=== PATIENT | male | born 1985 | race Caucasian/White ===

== ENCOUNTER 2019-03-13 10:18 | Inpatient (IN) ==
[2019-03-13] MEDS ORDERED: SENOKOT PO PRN ×2 (12:00→20:49)
[2019-03-13] MEDS ORDERED: IMODIUM PO PRN ×2 (12:00→20:46)
[2019-03-13] MEDS ORDERED: ZOFRAN IV PRN ×2 (12:00→20:54)
[2019-03-13] MEDS ORDERED: TUBERSOL ID ONE (12:00)
[2019-03-13] MEDS ORDERED: D5W 1,000 ML IV PRN ×2 (12:00→20:34)
[2019-03-13] MEDS ORDERED: SEROQUEL PO PRN (12:00)
[2019-03-13] MEDS ORDERED: NICODERM PATCH TD PRN ×2 (12:00→20:47)
[2019-03-13] MEDS ORDERED: TYLENOL PO PRN ×2 (12:00→20:51)
[2019-03-13] MEDS ORDERED: ZOFRAN ODT PO PRN ×2 (12:00→20:54)
[2019-03-13] MEDS ORDERED: MAALOX PLUS LIQUID PO PRN ×2 (12:00→20:46)
[2019-03-13] MEDS ORDERED: PHENOBARBITAL IV PRN ×2 (12:00→20:48)
[2019-03-13] MEDS ORDERED: DULCOLAX PR PRN ×2 (12:00→20:44)
[2019-03-13] MEDS ORDERED: MOTRIN PO PRN (12:00)
[2019-03-13] MEDS ORDERED: DESYREL PO PRN (12:00)
[2019-03-13] MEDS ORDERED: NORCO-10 PO PRN (12:03)
[2019-03-13] MEDS ORDERED: ZOSYN 3.375 GM in NS 50 ML IV SCH (12:15)
[2019-03-13] MEDS ORDERED: VANCOMYCIN IV PER PHARMACY MISC SCH (12:15)
[2019-03-13] MEDS ORDERED: M.V.I.-12 10 ML, FOLIC ACID 1 MG, MAGNESIUM SULFATE 1 GM, THIAMINE 100 MG in NS 1,000 ML IV ONE (13:00)
[2019-03-13 14:07] LABS: URINE SOURCE VOIDED
[2019-03-13] MEDS ORDERED: FLU VACCINE IM ONE (14:09)
[2019-03-13 14:11] LABS: HEMATOCRIT 33.8 % (42.0-52.0); MCH 29.3 PG (27-31); MCHC 32.5 g/dL (33-37); MCV 89.9 FL (81-99); MPV 9.5 FL (7.4-10.4); RBC 3.76 XMIL (4.7-6.1); WBC 10.82 X1000 (4.8-10.8)
[2019-03-13 14:16] LABS: BILIRUBIN URINE NEGATIVE (NEGATIVE); BLOOD URINE NEGATIVE (NEGATIVE); CLARITY CLEAR (CLEAR); COLOR YELLOW; GLUCOSE URINE NEGATIVE (NEGATIVE); KETONE URINE 1+(Small) mg/dL (NEGATIVE); LEUKOCYTES URINE TRACE (NEGATIVE); NITRITE URINE NEGATIVE (NEGATIVE); PROTEIN URINE TRACE mg/dL (NEGATIVE); UROBILINOGEN URINE 4 mg/dL
[2019-03-13 14:19] LABS: URINE BACTERIA NEGATIVE /HFP; URINE CAST NONE SEEN /LPF; URINE CRYSTAL CA OXALATE PRESENT /HPF; URINE EPITHELIAL CELLS <10 /HPF (<10); URINE RBC <10 /HPF (<10); URINE YEAST NONE SEEN /HPF
[2019-03-13 14:23] LABS: INR 1.05; PROTIME 14.2 Seconds (11.0-16.0)
[2019-03-13 14:24] LABS: UR AMPHETAMINES QUAL PRESUMPTIVE POSITIVE (NONE DETECT); UR BARBITUATES QUAL NONE DETECTED (NONE DETECT); UR BENZODIAZEPIN QUAL NONE DETECTED (NONE DETECT); UR CANNABINOIDS QUAL NONE DETECTED (NONE DETECT); UR COCAINE QUAL NONE DETECTED (NONE DETECT); UR METHADONE QUAL NONE DETECTED (NONE DETECT); UR METHAMPHETAMINE QUAL PRESUMPTIVE POSITIVE (NONE DETECT); UR OPIATES QUAL PRESUMPTIVE POSITIVE (NONE DETECT); UR OXYCODONE QUAL NONE DETECTED (NONE DETECT); UR PCP QUAL NONE DETECTED (NONE DETECT); UR PROPOXYPHENE QUAL NONE DETECTED (NONE DETECT); UR TCA QUAL NONE DETECTED (NONE DETECT)
[2019-03-13 14:29] LABS: AMYLASE 30 U/L (20-200); LIPASE 29 U/L (13-60)
[2019-03-13 14:31] LABS: AGAP 10; ALBUMIN 3.3 g/dL (3.5-5.0); ALKALINE PHOSPHATASE 82 U/L (32-122); BUN 14 mg/dL (8-22); CHLORIDE 104 mmol/L (98-107); COSMO 270; CREATININE 0.6 mg/dL (0.7-1.2); ESTIMATED GFR > 60; GLUCOSE 121 mg/dL (70-104); GOT 13 U/L (10-34); GPT 9 U/L (10-44); SODIUM 134 mmol/L (136-145); TCO2 20 mmol/L (25-35); TOTAL PROTEIN 7.6 g/dL (6.3-8.3)
[2019-03-13] MEDS ORDERED: NS 250 ML ONE (15:12)
[2019-03-13] MEDS ORDERED: VANCOMYCIN 2,000 MG in NS 500 ML IV SCH (16:00)
[2019-03-13] MEDS ORDERED: DILAUDID IV PRN (18:00)
[2019-03-13] MEDS: SEROQUEL PO PRN (21:39)
[2019-03-13] MEDS: NORCO-10 PO PRN (21:40)
[2019-03-13] MEDS: ZOSYN 3.375 GM in NS 50 ML IV SCH (23:29)
[2019-03-14] MEDS: NORCO-10 PO PRN ×3 (01:01→23:29)
[2019-03-14] MEDS: DESYREL PO PRN (01:01)
[2019-03-14] MEDS: DILAUDID IV PRN ×6 (04:11→22:03)
[2019-03-14] MEDS: ZOSYN 3.375 GM in NS 50 ML IV SCH ×4 (06:34→22:03)
[2019-03-14] MEDS: VANCOMYCIN 2,000 MG in NS 500 ML IV SCH ×2 (06:34→17:18)
[2019-03-14] MEDS ORDERED: PROTONIX PO SCH (07:00)
[2019-03-14] MEDS: PROTONIX PO SCH (07:51)
[2019-03-14] MEDS ORDERED: FOLIC ACID PO SCH (09:00)
[2019-03-14] MEDS ORDERED: VITAMIN B-1 PO SCH (09:00)
[2019-03-14] MEDS ORDERED: THERA M PLUS PO SCH (09:00)
[2019-03-14] MEDS ORDERED: FENTANYL ONE (10:32)
[2019-03-14] MEDS ORDERED: XYLOCAINE-MPF 2% ONE (10:32)
[2019-03-14] MEDS ORDERED: VERSED ONE ×2 (10:32→13:07)
[2019-03-14] MEDS ORDERED: DIPRIVAN 1% ONE (10:33)
[2019-03-14] MEDS: FOLIC ACID PO SCH (11:42)
[2019-03-14] MEDS: THERA M PLUS PO SCH (11:42)
[2019-03-14] MEDS: VITAMIN B-1 PO SCH (11:42)
[2019-03-14] MEDS ORDERED: BSS OPHTH SOLN ONE (11:45)
[2019-03-14] MEDS ORDERED: NEOSPORIN G.U. IRRIGANT ONE (11:45)
[2019-03-14] MEDS ORDERED: DECADRON ONE (12:20)
[2019-03-14] MEDS ORDERED: ZOFRAN ONE (12:20)
[2019-03-14] MEDS ORDERED: GENTAMICIN ONE (12:21)
[2019-03-14] MEDS ORDERED: PRECEDEX ONE (13:13)
[2019-03-14] MEDS: ANTILIRIUM ONE (13:18)
[2019-03-14] MEDS: DILAUDID ONE ×2 (13:20→13:32)
[2019-03-14] MEDS ORDERED: KETAMINE ONE (13:29)
[2019-03-14] MEDS ORDERED: HALDOL IM PRN (15:13)
[2019-03-14] MEDS: PERIDEX MT SCH (22:03)
[2019-03-14] MEDS: SEROQUEL PO PRN (23:29)
[2019-03-15] MEDS: DILAUDID IV PRN ×7 (01:06→22:29)
[2019-03-15] MEDS: DESYREL PO PRN (01:06)
[2019-03-15] MEDS: ZOSYN 3.375 GM in NS 50 ML IV SCH ×3 (04:34→21:47)
[2019-03-15] MEDS: NS 1,000 ML IV SCH ×2 (04:34→21:47)
[2019-03-15] MEDS: NORCO-10 PO PRN (06:40)
[2019-03-15] MEDS: PROTONIX PO SCH (06:40)
[2019-03-15] MEDS: PERIDEX MT SCH ×2 (08:50→21:55)
[2019-03-15] MEDS: VITAMIN B-1 PO SCH (08:50)
[2019-03-15] MEDS: THERA M PLUS PO SCH (08:50)
[2019-03-15] MEDS: FOLIC ACID PO SCH (08:50)
[2019-03-15] MEDS: VANCOMYCIN 2,000 MG in NS 500 ML IV SCH ×2 (09:43→22:30)
[2019-03-15] MEDS: DILAUDID ONE ×2 (13:40)
[2019-03-15] MEDS: ANTILIRIUM ONE (13:40)
[2019-03-16] MEDS: DILAUDID IV PRN ×7 (02:20→21:55)
[2019-03-16] MEDS: ZOSYN 3.375 GM in NS 50 ML IV SCH ×4 (02:40→21:49)
[2019-03-16] MEDS: PROTONIX PO SCH (07:12)
[2019-03-16] MEDS: PERIDEX MT SCH ×2 (08:46→21:50)
[2019-03-16] MEDS: VITAMIN B-1 PO SCH (08:46)
[2019-03-16] MEDS: THERA M PLUS PO SCH (08:46)
[2019-03-16] MEDS: FOLIC ACID PO SCH (08:47)
[2019-03-16 08:56] LABS: BASO# 0.04 X1000 (0.0-0.2); BASO% 0.4 % (0.0-0.8); EOS# 0.18 X1000 (0.0-0.7); HEMATOCRIT 34.3 % (42.0-52.0); HEMOGLOBIN 11.1 g/dL (14.0-18.0); IMM GRAN# 0.02 X1000 (0.0-0.04); IMM GRAN% 0.2 % (0.0-0.5); LYMPH% 32.4 % (20.5-51.1); MCH 29.9 PG (27-31); MCHC 32.4 g/dL (33-37); MCV 92.5 FL (81-99); MONO# 0.45 X1000 (0.11-0.59); MPV 9.3 FL (7.4-10.4); NEUT# 5.35 X1000 (1.4-6.5); PLT 285 X1000 (130-400); RBC 3.71 XMIL (4.7-6.1); RDW 13.4 % (11.5-14.5); WBC 8.94 X1000 (4.8-10.8)
[2019-03-16 09:02] LABS: AGAP 9; BUN 6 mg/dL (8-22); CALCIUM 8.4 mg/dL (8.8-10.2); CHLORIDE 108 mmol/L (98-107); COSMO 281; CREATININE 0.6 mg/dL (0.7-1.2); ESTIMATED GFR > 60; GLUCOSE 107 mg/dL (70-104); POTASSIUM 3.8 mmol/L (3.5-5.1); SODIUM 142 mmol/L (136-145); TCO2 25 mmol/L (25-35)
[2019-03-16] MEDS: VANCOMYCIN 2,000 MG in NS 500 ML IV SCH ×2 (10:31→21:50)
[2019-03-16] MEDS: TUBERSOL ID ONE ×2 (15:08→15:17)
[2019-03-16] MEDS: NS 1,000 ML IV SCH (18:49)
[2019-03-16] MEDS: SEROQUEL PO PRN (21:50)
[2019-03-17] MEDS: DILAUDID IV PRN ×4 (01:04→10:42)
[2019-03-17] MEDS: NS 1,000 ML IV SCH ×3 (03:23→21:52)
[2019-03-17] MEDS: ZOSYN 3.375 GM in NS 50 ML IV SCH ×2 (04:23→10:56)
[2019-03-17] MEDS: PROTONIX PO SCH (06:32)
[2019-03-17 07:38] LABS: HEMATOCRIT 33.9 % (42.0-52.0); HEMOGLOBIN 11.3 g/dL (14.0-18.0); MCH 30.2 PG (27-31); MCHC 33.3 g/dL (33-37); MCV 90.6 FL (81-99); MPV 9.3 FL (7.4-10.4); RBC 3.74 XMIL (4.7-6.1); RDW 13.3 % (11.5-14.5); WBC 7.1 X1000 (4.8-10.8)
[2019-03-17 07:52] LABS: AGAP 11; ALB/GLOB RATIO 0.8; ALBUMIN 3.2 g/dL (3.5-5.0); ALKALINE PHOSPHATASE 63 U/L (32-122); BUN 7 mg/dL (8-22); CALCIUM 8.7 mg/dL (8.8-10.2); CHLORIDE 104 mmol/L (98-107); COSMO 277; CREATININE 0.7 mg/dL (0.7-1.2); ESTIMATED GFR > 60; GLUCOSE 83 mg/dL (70-104); GOT 9 U/L (10-34); GPT 7 U/L (10-44); MAGNESIUM 1.7 mg/dL (1.5-2.7); POTASSIUM 3.5 mmol/L (3.5-5.1); SODIUM 140 mmol/L (136-145); TCO2 25 mmol/L (25-35); TOTAL BILIRUBIN 0.17 mg/dL (0.20-1.00); TOTAL PROTEIN 7.1 g/dL (6.3-8.3)
[2019-03-17] MEDS: VANCOMYCIN 2,000 MG in NS 500 ML IV SCH ×2 (10:43→21:52)
[2019-03-17] MEDS: FOLIC ACID PO SCH (10:55)
[2019-03-17] MEDS: VITAMIN B-1 PO SCH (10:55)
[2019-03-17] MEDS: THERA M PLUS PO SCH (10:55)
[2019-03-17] MEDS: PERIDEX MT SCH ×2 (10:56→20:58)
[2019-03-17] MEDS ORDERED: DILAUDID IV PRN (12:17)
[2019-03-17] MEDS ORDERED: TORADOL IV PRN (12:18)
[2019-03-17] MEDS: ROCEPHIN 1 GM in NS 50 ML IV SCH (15:36)
[2019-03-17] MEDS: DILAUDID PO PRN ×3 (15:47→21:52)
[2019-03-18] MEDS: DILAUDID PO PRN ×5 (00:52→14:56)
[2019-03-18] MEDS: PROTONIX PO SCH ×2 (05:25→05:59)
[2019-03-18] MEDS: PERIDEX MT SCH (08:50)
[2019-03-18] MEDS: THERA M PLUS PO SCH (08:50)
[2019-03-18] MEDS: VITAMIN B-1 PO SCH (08:50)
[2019-03-18] MEDS: FOLIC ACID PO SCH (08:50)
[2019-03-18] MEDS: VANCOMYCIN 2,000 MG in NS 500 ML IV SCH (11:17)
[2019-03-18 11:58] VITALS: BP 149/75
[2019-03-18] MEDS: ROCEPHIN 1 GM in NS 50 ML IV SCH (13:36)
== END 2019-03-18 15:42 | disposition home or self-care (01) ==
LOC: P.DIRADM 10:18 → SUATTDRO 10:18 → P.MEDSURG 12:20 → 4N 20:09
PROVIDERS: ADMIT Orthopaedic Surgery Adult Reconstructive Orthopaedic Surgery; ATTEND Internal Medicine

== ENCOUNTER 2019-04-10 13:19 | Inpatient (IN) ==
[2019-04-10] MEDS ORDERED: NICOTINE GUM BUCCAL PRN (16:17)
[2019-04-10] MEDS ORDERED: SENOKOT PO PRN (16:17)
[2019-04-10] MEDS ORDERED: DULCOLAX PR PRN (16:17)
[2019-04-10] MEDS ORDERED: PHENOBARBITAL IV PRN (16:17)
[2019-04-10] MEDS ORDERED: DESYREL PO PRN (16:17)
[2019-04-10] MEDS ORDERED: ZOFRAN IV PRN (16:17)
[2019-04-10] MEDS ORDERED: MAALOX PLUS LIQUID PO PRN (16:17)
[2019-04-10] MEDS ORDERED: MOTRIN PO PRN (16:17)
[2019-04-10] MEDS ORDERED: TUBERSOL ID ONE (16:17)
[2019-04-10] MEDS ORDERED: ZOFRAN ODT PO PRN (16:17)
[2019-04-10] MEDS ORDERED: TYLENOL PO PRN (16:17)
[2019-04-10] MEDS ORDERED: D5W 1,000 ML IV PRN (16:17)
[2019-04-10] MEDS ORDERED: SEROQUEL PO PRN (16:17)
[2019-04-10] MEDS ORDERED: ZOFRAN IM PRN (16:17)
[2019-04-10] MEDS ORDERED: IMODIUM PO PRN ×2 (16:17)
[2019-04-10] MEDS ORDERED: FLU VACCINE IM ONE (16:59)
[2019-04-10] MEDS ORDERED: ATARAX PO PRN (17:22)
[2019-04-10] MEDS ORDERED: ROBAXIN PO PRN (17:22)
[2019-04-10] MEDS ORDERED: SINEMET 25/100 PO PRN (17:22)
[2019-04-10] MEDS ORDERED: BENTYL PO PRN (17:22)
[2019-04-10] MEDS ORDERED: LIBRIUM PO PRN (17:22)
[2019-04-10] MEDS ORDERED: SUBOXONE 2 MG/0.5 MG FILM SL SCH (17:30)
[2019-04-10] MEDS ORDERED: CLEOCIN PO SCH (18:00)
[2019-04-10 20:07] LABS: URINE SOURCE VOIDED
[2019-04-10 20:22] LABS: UR AMPHETAMINES QUAL PRESUMPTIVE POSITIVE (NONE DETECT); UR BARBITUATES QUAL NONE DETECTED (NONE DETECT); UR BENZODIAZEPIN QUAL NONE DETECTED (NONE DETECT); UR COCAINE QUAL NONE DETECTED (NONE DETECT)
[2019-04-10 20:23] LABS: UR CANNABINOIDS QUAL NONE DETECTED (NONE DETECT); UR METHADONE QUAL NONE DETECTED (NONE DETECT); UR METHAMPHETAMINE QUAL PRESUMPTIVE POSITIVE (NONE DETECT); UR OPIATES QUAL PRESUMPTIVE POSITIVE (NONE DETECT); UR OXYCODONE QUAL NONE DETECTED (NONE DETECT); UR PCP QUAL NONE DETECTED (NONE DETECT); UR PROPOXYPHENE QUAL NONE DETECTED (NONE DETECT); UR TCA QUAL NONE DETECTED (NONE DETECT)
[2019-04-10 20:26] LABS: BILIRUBIN URINE NEGATIVE (NEGATIVE); BLOOD URINE NEGATIVE (NEGATIVE); CLARITY CLEAR (CLEAR); COLOR YELLOW; GLUCOSE URINE NEGATIVE (NEGATIVE); KETONE URINE TRACE mg/dL (NEGATIVE); LEUKOCYTES URINE TRACE (NEGATIVE); NITRITE URINE NEGATIVE (NEGATIVE); PROTEIN URINE 1+(30 mg/dL) mg/dL (NEGATIVE); SP GRAVITY URINE 1.025; UROBILINOGEN URINE NORMAL
[2019-04-10 20:29] LABS: URINE BACTERIA 1+ /HFP; URINE CAST NONE SEEN /LPF; URINE CRYSTAL NONE SEEN /HPF; URINE EPITHELIAL CELLS <10 /HPF (<10); URINE YEAST NONE SEEN /HPF
[2019-04-10 20:41] LABS: HEMATOCRIT 36.2 % (42.0-52.0); HEMOGLOBIN 11.9 g/dL (14.0-18.0); MCH 29.6 PG (27-31); MCHC 32.9 g/dL (33-37); MPV 9.3 FL (7.4-10.4); RBC 4.02 XMIL (4.7-6.1); WBC 8.21 X1000 (4.8-10.8)
[2019-04-10] MEDS ORDERED: AUGMENTIN PO SCH (21:00)
[2019-04-10 21:12] LABS: AGAP 11; ALKALINE PHOSPHATASE 82 U/L (32-122); AMYLASE 36 U/L (20-200); BUN 22 mg/dL (8-22); CALCIUM 9.5 mg/dL (8.8-10.2); CHLORIDE 98 mmol/L (98-107); COSMO 278; CREATININE 0.7 mg/dL (0.7-1.2); ESTIMATED GFR > 60; GLUCOSE 141 mg/dL (70-104); GOT 12 U/L (10-34); GPT 9 U/L (10-44); LIPASE 21 U/L (13-60); POTASSIUM 3.9 mmol/L (3.5-5.1); SODIUM 136 mmol/L (136-145); TCO2 27 mmol/L (25-35); TOTAL PROTEIN 7.5 g/dL (6.3-8.3)
[2019-04-11] MEDS: PROTONIX PO SCH ×2 (05:44→06:29)
[2019-04-11] MEDS ORDERED: AUGMENTIN PO SCH (09:00)
[2019-04-11] MEDS: FOLIC ACID PO SCH (10:19)
[2019-04-11] MEDS: AUGMENTIN PO SCH ×2 (10:19→17:15)
[2019-04-11] MEDS: CLEOCIN PO SCH ×2 (10:19→17:15)
[2019-04-11] MEDS: VITAMIN B-1 PO SCH (10:19)
[2019-04-11] MEDS: THERA M PLUS PO SCH (10:19)
[2019-04-11] MEDS: SUBOXONE 2 MG/0.5 MG FILM SL SCH ×2 (10:19→22:56)
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
--- NOTE | 2019-04-11 22:13 | PROGRESS NOTE ---
DATE: 04/11/2019 SUBJECTIVE: Patient notes he is feeling okay. Denies any fevers, chills. Denies cough, congestion. Notes his withdrawal symptoms currently are stable. PHYSICAL EXAMINATION: Vital Signs: Reviewed. He is awake, alert. Temperature 98 degrees, pulse rate 76, respiratory rate 18, BP 109/67. General: Patient is in no current respiratory distress. HEENT: Normocephalic. Neck: Supple. Cardiovascular: Regular rate. No murmurs. Chest: Clear, nonlabored. Abdomen: Soft, nondistended. Extremities: Moves all extremities. Neurologic: No changes. ASSESSMENT: 1. Nausea and vomiting. 2. Abdominal pain. 3. Myalgias. 4. Paresthesias. 5. Paroxysmal sweating. 6. Opiate abuse withdrawal and stabilization. 7. Recurrent cellulitis. PLAN: We will continue patient in the hospital. Continue Suboxone. Continue further orders as needed. cc: Omer Marquez MD
[2019-04-12] MEDS: CLEOCIN PO SCH ×3 (00:20→18:40)
[2019-04-12] MEDS: PROTONIX PO SCH ×2 (06:36→09:11)
[2019-04-12] MEDS ORDERED: SANTYL OINT TOP SCH (09:00)
[2019-04-12] MEDS: AUGMENTIN PO SCH ×2 (09:10→18:40)
[2019-04-12] MEDS: SUBOXONE 8 MG/2 MG FILM SL SCH ×2 (09:10→20:20)
[2019-04-12] MEDS: THERA M PLUS PO SCH (09:11)
[2019-04-12] MEDS: FOLIC ACID PO SCH (09:12)
[2019-04-12] MEDS: VITAMIN B-1 PO SCH (09:12)
--- NOTE | 2019-04-12 17:21 | PROGRESS NOTE ---
DATE: 04/12/2019 SUBJECTIVE: The patient notes he is feeling better, but still having some muscle aches and still having cravings. OBJECTIVE: Vital signs reviewed. He is awake, alert. He is in no current respiratory distress. He is afebrile. Temperature 97 degrees, pulse 80, respiratory rate 18, BP 139/85. HEENT: Normocephalic. Neck supple.Cardiovascular: Regular rate. No murmurs. Chest clear, nonlabored. Abdomen soft, nondistended, nontender. Extremities: Moves all extremities. Neurologic: No changes. Skin warm and dry. No rashes. ASSESSMENT: 1. Nausea and vomiting. 2. Abdominal pain. 3. Myalgias. 4. Paresthesias. 5. Polysubstance use and abuse with heroin as well as others. PLAN: We are going to continue medication-assisted therapy of Suboxone. We are going to increase to 12/28. Continue counseling. Further orders as needed. Hopefully can discharge home tomorrow. cc: Omer Marquez MD
[2019-04-12] MEDS: NICODERM PATCH TD PRN ×2 (18:40→20:20)
[2019-04-13] MEDS: CLEOCIN PO SCH ×2 (02:28→10:16)
[2019-04-13] MEDS: PROTONIX PO SCH (06:49)
[2019-04-13 07:59] VITALS: BP 128/83
[2019-04-13] MEDS: SUBOXONE 8 MG/2 MG FILM SL SCH (10:15)
[2019-04-13] MEDS: VITAMIN B-1 PO SCH (10:16)
[2019-04-13] MEDS: THERA M PLUS PO SCH (10:16)
[2019-04-13] MEDS: FOLIC ACID PO SCH (10:16)
[2019-04-13] MEDS: AUGMENTIN PO SCH (10:16)
--- NOTE | 2019-04-14 04:09 | DISCHARGE SUMMARY ---
ADMISSION DATE: 04/10/2019 DISCHARGE DATE: 04/13/2019 DISCHARGE DIAGNOSIS: 1. Nausea, vomiting. 2. Abdominal pain. 3. Myalgias. 4. Paresthesias. 5. Paroxysmal sweating. 6. Opiate abuse, withdrawal and stabilization. CONSULTATIONS: None. PROCEDURES: None. BRIEF HOSPITAL COURSE: The patient was admitted to the hospital as he has been in the past. He was placed on Suboxone. Counseling was performed each time by myself. Discussed with patient that he needs to avoid all persons, places, and situations in which he has been using and abusing in the past. He needs outpatient life counseling as well as drug counseling. He will continue Suboxone 12/28 and follow up outpatient with primary care of his choice. cc: Omer Marquez MD
== END 2019-04-13 12:31 | disposition home or self-care (01) | DRG 897 ==
LOC: P.DIRADM 15:07 → P.MEDSURG 15:53
PROVIDERS: ADMIT Family Medicine; ATTEND Family Medicine

== ENCOUNTER 2019-06-01 12:13 | Observation (INO) ==
--- NOTE | 2019-06-01 13:43 | Diag Imaging Result Doc PS360 ---
EXAM: CHEST-1 VIEW 06/01/2019 HISTORY: possible sepsis TECHNIQUE: AP upright chest at 1337 COMMENT: There is a PICC line on the left with its tip in the specimen vena cava. There are no previous studies available for comparison. IMPRESSION: No acute disease. Electronically signed by Wilman Lou 06/01/2019 1:41 PM
--- NOTE | 2019-06-01 14:29 | PROVIDER DOCUMENTATION ---
HPI-General Adult - General Chief Complaint: SEPSIS ALERT - D Stated Complaint: ABNORMAL LABS Time Seen by Provider: 06/01/19 14:20 Source: patient Allergies/Adverse Reactions: Patient Allergies Allergy/AdvReac Type Severity Reaction Status Date / Time shellfish derived Allergy Unknown Verified 12/09/15 17:44 Home Medications: Home Medication List Medication Instructions Recorded Confirmed Last Taken Type Buprenorphine/Naloxone S.l. 1 ea SUBLINGUAL BID #60 film 04/13/19 06/01/19 05/14/19 Rx [Suboxone 8 mg/2 mg Film] Albuterol [Proventil Liquid] 1 puff INH PRN PRN 06/01/19 06/01/19 Unknown History - History of Present Illness -Gen Adult Nature of Presenting Problems: Pt. is 33 yom that presents with c/o having home health give ABX for an infection and he was called and told to come to the ED because of his lab work. He is being treated by Dr. Perez. He has a picc line in the left arm. He dante es any pain or other complaints and reports 3 weeks since any drug use. Location of Pain/Injury: reports: none. denies: head, face, mouth, neck, chest, upper extremity, hand(s), abdomen, back, pelvis, genitalia, lower extremity, feet, upper body, lower body, generalized, other Pain Radiation: reports: no radiation. denies: arm(s), back, buttocks, chest, epigastric, feet, groin, jaw, flank (L), legs (lower), LLQ, LUQ, neck, periumbilical, flank (R), RLQ, RUQ, shoulder(s), scapula, scrotal, sternal notch, suprapubic, legs (upper), urethral, vaginal, other Quality of Pain: reports: none. denies: aching, pressure, tightness Severity: reports: mild. denies: moderate, severe Onset/Duration: reports: unsure Timing: reports: still present. denies: improving, intermittent, getting worse Context/Activities at Onset: reports: none. denies: light activity, moderate activity, vigorous activity, recent emotional stress, recent physical stress, recent trauma history, possible bad food, cold exposure, eating, out of country travel, rest, sleep, sexual activity, other Modifying Factors: improves with: nothing Associated Symptoms: reports: denies symptoms. denies: anxiety, arm pain, back/neck pain, chest pain, constipation, cough, diaphoresis, diarrhea, dizziness, EENT symptoms, fatigue, fever/chills, genitourinary problems, headaches, heartburn, joint pain, loss of appetite, malaise, muscle aches, sinus congestion/drainage, nausea, rash, seizure, shortness of breath, sensory/motor loss, pain with inspiration, swelling/mass in abdomen, syncope, vomiting, weakness, trouble walking, other Similar Symptoms Previously?: Yes Recently seen or treated by another doctor?: Yes Review of Systems - Adult - REVIEW OF SYSTEMS - ADULT Constitutional: reports: no symptoms reported Eyes: reports: no symptoms reported Ears, Nose, Mouth & Throat: reports: no symptoms reported Cardiovascular: reports: no symptoms reported Respiratory: reports: no symptoms reported Gastrointestinal: reports: no symptoms reported Genitourinary: reports: no symptoms reported Musculoskeletal: reports: no symptoms reported Integumentary: reports: no symptoms reported Neurological: reports: no symptoms reported Psychiatric: reports: no symptoms reported Past History - Adult - PAST MEDICAL HISTORY-ADULT Review of Records: reports: Old Records Reviewed, Nursing Assessment Review, Medications Reviewed, Social history reviewed & non-contributory. - IMMUNIZATION STATUS Childhood Immunizations: See Nurse Assessment Flu Vaccine: See Nurse Assessment - FAMILY HISTORY Family History: reviewed, not pertinent - SOCIAL HISTORY Smoking: cigarettes, greater than 1 pack/day Provider spent 3-5 mins advising pt. on dangers of tobacco.: Discussed manners to quit use, and f/u contacts for add'l counseling. Physical Exam-General - PHYSICAL EXAM-ADULT Initial Vital Signs Reviewed: Yes - CONSTITUTIONAL General Appearance: alert, no apparent distress, thin. negative: anxious, slow to respond, combative - EYES Eyes: PERRL/EOMI, pink conjunctivae - HEAD, EARS, NOSE, MOUTH & THROAT HENMT: normocephalic/atraumatic, moist mucous membranes - NECK Neck: non-tender, full range of motion, supple, normal inspection - RESPIRATORY Respiratory: lungs clear, normal breath sounds - CARDIOVASCULAR Cardiovascular: regular rate, rhythm, no edema, tachycardia - GASTROINTESTINAL (ABDOMEN) Abdominal Exam: normal bowel sounds, non tender, soft - LYMPHATIC Lymphatic: no adenopathy - MUSCULOSKELETAL Back Exam: normal inspection, no CVA tenderness, no vertebral tenderness Extremity: normal range of motion, non-tender, normal gait, normal inspection Peripheral Pulses: radial (R): 2+, radial (L): 2+ - SKIN Integumentary: embolic lesions (Multiple drying lesions on bilateral arms). negative: cyanosis, erythema, swelling - NEUROLOGIC Neurologic: grossly normal, no motor/sensory deficits - PSYCHIATRIC Psych/Mental Status: normal mood/affect, normal thought content, normal thought process, oriented x 3. negative: anxious, paranoid, tearful Progress - PLAN OF CARE/RESULTS Progress/Plan/Lab Results: Vital Signs - 8 hr 06/01/19 12:30 06/01/19 13:57 Temperature 97.6 F Pulse Rate 134 H 116 H Respiratory Rate 22 8 L Blood Pressure 136/85 O2 Sat by Pulse Oximetry 97 95 Orders Category Date Time Status Cardiac Monitoring DIRECTED Care 06/01/19 12:37 Active IV Insertion ORDERED Care 06/01/19 12:37 Active Notify MD of + Sepsis Screen NOW Care 06/01/19 12:37 Active CHEST-1 VIEW [RAD] Stat Exams 06/01/19 12:37 Completed BLOOD CULTURE [BLDCUL] Stat Lab 06/01/19 13:07 Ordered CBC WITH DIFF [HEME] Stat Lab 06/01/19 13:07 Ordered CK PROFILE [SP CHEM] Stat Lab 06/01/19 13:07 Ordered COMPREHENSIVE METABOLIC PANEL [CHEM] Stat Lab 06/01/19 13:07 Ordered LACTATE, PLASMA [CHEM] Lab 06/01/19 13:07 Ordered LACTATE, PLASMA [CHEM] Lab 06/01/19 15:45 Uncollected LACTATE, PLASMA [CHEM] Lab 06/01/19 18:45 Uncollected PROTIME WITH INR [COAG] Stat Lab 06/01/19 13:07 Ordered PTT [COAG] Stat Lab 06/01/19 13:07 Ordered TROPONIN T Stat Lab 06/01/19 13:07 Ordered URINALYSIS W/POSS RFLX CULT [URINALYSIS] Stat Lab 06/01/19 12:37 Uncollected Oxygen Device Stat Oth 06/01/19 12:37 Active Laboratory Tests 06/01/19 06/01/19 06/01/19 17:13 17:13 17:13 WBC 2.79 L RBC 2.72 L Hgb 8.0 L Hct 24.3 L MCV 89.3 MCH 29.4 MCHC 32.9 L RDW Std Deviation 12.3 Plt Count 26 L* MPV 10.2 Immature Gran % (Auto) 0.0 Neut % (Auto) 3.3 L Lymph % (Auto) 73.8 H Sibley % (Auto) 15.8 H Eos % (Auto) 5.7 Baso % (Auto) 1.4 H Immature Gran # (Auto) 0.00 Neut # (Auto) 0.09 L* Lymph # (Auto) 2.06 Sibley # (Auto) 0.44 Eos # (Auto) 0.16 Baso # (Auto) 0.04 PT 13.7 INR 1.04 PTT (Actin FS) 28.6 Sodium 133 L Potassium 4.1 Chloride 94 L Carbon Dioxide 26 Anion Gap 13 BUN 20 Creatinine 1.5 H Estimated GFR/1.73 m2 54 BUN/Creatinine Ratio 13 Glucose 152 H Calculated Osmolality 272 Calcium 9.5 Total Bilirubin 0.39 AST 13 ALT 13 Alkaline Phosphatase 98 Creatine Kinase 65 Troponin T Total Protein 7.8 Albumin 4.5 Globulin 3.3 Albumin/Globulin Ratio 1.4 Plasma Lactate Urine Source Urine Color Urine Turbidity Urine pH Ur Specific [place] Urine Protein Ur Glucose (Stick) Ur Ketones (Stick) Urine Blood Urine Nitrite Urine Bilirubin Urobilinogen Dipstick Urine Leukocytes Urine WBC (Auto) Urine RBC (Auto) U Epithel Cells (Auto) Urine Bacteria (Auto) 06/01/19 06/01/19 06/01/19 17:13 17:13 17:36 WBC RBC Hgb Hct MCV MCH MCHC RDW Std Deviation Plt Count MPV Immature Gran % (Auto) Neut % (Auto) Lymph % (Auto) Sibley % (Auto) Eos % (Auto) Baso % (Auto) Immature Gran # (Auto) Neut # (Auto) Lymph # (Auto) S[place]y # (Auto) Eos # (Auto) Baso # (Auto) PT INR PTT (Actin FS) Sodium Potassium Chloride Carbon Dioxide Anion Gap BUN Creatinine Estimated GFR/1.73 m2 BUN/Creatinine Ratio Glucose Calculated Osmolality Calcium Total Bilirubin AST ALT Alkaline Phosphatase Creatine Kinase Troponin T < 0.010 Total Protein Albumin Globulin Albumin/Globulin Ratio Plasma Lactate 1.4 Urine Source CLEAN CATCH Urine Color YELLOW Urine Turbidity CLEAR Urine pH 5.5 Ur Specific [place] 1.025 Urine Protein TRACE A Ur Glucose (Stick) NEGATIVE Ur Ketones (Stick) NEGATIVE Urine Blood NEGATIVE Urine Nitrite NEGATIVE Urine Bilirubin NEGATIVE Urobilinogen Dipstick NORMAL Urine Leukocytes NEGATIVE Urine WBC (Auto) <10 Urine RBC (Auto) <10 U Epithel Cells (Auto) <10 Urine Bacteria (Auto) NEGATIVE Discussed results and plan of care with patient. Patient agrees with plan and verbalizes understanding. Result Diagrams: 06/01/19 17:13 06/01/19 17:13 - CONSULTS/PCP/HOSPITALIST Notification #1 *Consult/PCP/Hospitalist*: Renita for Hospitilist Time Discussed: 18:27 Reason/Comments: Admission Consult Disposition: Will see in ED, Admit #2 Consult: Dr. Perez Reason/Comments: Consult Consult Disposition: other (Had not called back at time of admission) Departure - Departure Date of Disposition Decision: 06/01/19 Time of Disposition Decision: 17:46 DIAGNOSIS: Pancytopenia Anemia Qualifiers: Anemia type: unspecified type Qualified Code(s): D64.9 - Anemia, unspecified Neutropenia Qualifiers: Neutropenia type: other drug-induced Qualified Code(s): D70.2 - Other drug- induced agranulocytosis Disposition: ADMITTED INPATIENT 09 Certified Medical Emergency: Emergent Condition: Serious Referrals and Follow-Ups: Balaji Perez MD [Primary Care Provider] - - Critical Care Note This patient required my direct & personal management of CC.: No Attestation - Physician/ DARIN Attestation Patient care was provided by Advanced Practice Provider:: Yes Advanced Practice Provider:: Kristy Chin Advanced Practice Provider documentation review:: The Mid-level provider documentation, treatment plan and medical decision making was reviewed by the physician who agrees with all treatment and medical decision making by the MLP. The physician spent face to face time with patient:: No Advanced Practice Provider documentation review:: Supervising physician onsite and consulted in the evaluation and care of this patient. The physician did not have a face to face encounter with the patient.
[2019-06-01 17:36] LABS: INR 1.04; PROTIME 13.7 Seconds (11.0-16.0); PTT 28.6 Seconds (22.3-41.8)
[2019-06-01 17:38] LABS: BASO# 0.04 X1000 (0.0-0.2); BASO% 1.4 % (0.0-0.8); EOS# 0.16 X1000 (0.0-0.7); EOS% 5.7 % (0.0-10.0); HEMATOCRIT 24.3 % (42.0-52.0); LYMPH# 2.06 X1000 (1.2-3.4); LYMPH% 73.8 % (20.5-51.1); MCH 29.4 PG (27-31); MCHC 32.9 g/dL (33-37); MCV 89.3 FL (81-99); MONO# 0.44 X1000 (0.11-0.59); MONO% 15.8 % (1.7-9.3); MPV 10.2 FL (7.4-10.4); NEUT% 3.3 % (42.2-75.2); RBC 2.72 XMIL (4.7-6.1); RDW 12.3 % (11.5-14.5); WBC 2.79 X1000 (4.8-10.8)
[2019-06-01 17:41] LABS: NEUT# 0.09 X1000 (1.4-6.5)
[2019-06-01 17:45] LABS: URINE SOURCE CLEAN CATCH
[2019-06-01 17:49] LABS: BILIRUBIN URINE NEGATIVE (NEGATIVE); BLOOD URINE NEGATIVE (NEGATIVE); COLOR YELLOW; GLUCOSE URINE NEGATIVE (NEGATIVE); KETONE URINE NEGATIVE (NEGATIVE); LEUKOCYTES URINE NEGATIVE (NEGATIVE); NITRITE URINE NEGATIVE (NEGATIVE); PH URINE 5.5; PROTEIN URINE TRACE mg/dL (NEGATIVE); SP GRAVITY URINE 1.025; TURBIDITY URINE CLEAR (CLEAR); UROBILINOGEN URINE NORMAL (NORMAL)
[2019-06-01 17:51] LABS: UR EPITHELIAL CELLS <10 /HPF (<10); URINE BACTERIA NEGATIVE /HPF; URINE RBC <10 /HPF (<10); URINE WBC <10 /HPF (<10)
[2019-06-01 18:05] LABS: ALB/GLOB RATIO 1.4; ALBUMIN 4.5 g/dL (3.5-5.0); CALCIUM 9.5 mg/dL (8.8-10.2); CREATININE 1.5 mg/dL (0.7-1.2); POTASSIUM 4.1 mmol/L (3.5-5.1); TOTAL BILIRUBIN 0.39 mg/dL (0.20-1.00); TOTAL PROTEIN 7.8 g/dL (6.3-8.3)
[2019-06-01 18:37] LABS: EOS 2 % (1-10); LYMPHS 84 % (21-51); MONO 8 % (1-9); SEGS 4 % (42-75)
[2019-06-01] MEDS ORDERED: ZOFRAN IV PRN (19:30)
[2019-06-01 19:58] LABS: UR AMPHETAMINES QUAL NONE DETECTED (NONE DETECT); UR BARBITUATES QUAL NONE DETECTED (NONE DETECT); UR BENZODIAZEPIN QUAL PRESUMPTIVE POSITIVE (NONE DETECT); UR CANNABINOIDS QUAL NONE DETECTED (NONE DETECT); UR COCAINE QUAL NONE DETECTED (NONE DETECT); UR METHADONE QUAL NONE DETECTED (NONE DETECT); UR OPIATES QUAL PRESUMPTIVE POSITIVE (NONE DETECT); UR OXYCODONE QUAL NONE DETECTED (NONE DETECT); UR PCP QUAL NONE DETECTED (NONE DETECT)
[2019-06-01] MEDS: SUBOXONE 8 MG/2 MG FILM SL SCH (21:00)
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
[2019-06-02] MEDS: CUBICIN 600 MG in NS 100 ML IV SCH (00:32)
[2019-06-02] MEDS: NS 1,000 ML IV SCH ×3 (00:32→18:15)
[2019-06-02 08:07] LABS: AGAP 11; BUN 23 mg/dL (8-22); CALCIUM 8.7 mg/dL (8.8-10.2); CHLORIDE 100 mmol/L (98-107); COSMO 272; CREATININE 1.1 mg/dL (0.7-1.2); ESTIMATED GFR > 60; GLUCOSE 133 mg/dL (70-104); POTASSIUM 4.1 mmol/L (3.5-5.1); SODIUM 133 mmol/L (136-145); TCO2 22 mmol/L (25-35); TOTAL IRON 44 ug/dL (53-167)
[2019-06-02 08:10] LABS: IRON SATURATION 17 %; TIBC 253 ug/dL; TOTAL IRON 42 ug/dL (53-167); UNBOUND IRON 211 ug/dL (112-346)
[2019-06-02 08:33] LABS: HEMATOCRIT 36.5 % (42.0-52.0); HEMOGLOBIN 12.3 g/dL (14.0-18.0); MCH 29.9 PG (27-31); MCHC 33.7 g/dL (33-37); MCV 88.8 FL (81-99); MPV 9.4 FL (7.4-10.4); PLT 239 X1000 (130-400); RBC 4.11 XMIL (4.7-6.1); RDW 12.6 % (11.5-14.5); WBC 4.05 X1000 (4.8-10.8)
[2019-06-02 10:36] LABS: BANDS 2 % (0-1); BASO 2 % (0-1); EOS 8 % (1-10); LYMPHS 54 % (21-51); MONO 20 % (1-9)
--- NOTE | 2019-06-02 11:03 | PROGRESS NOTE ---
DATE: 06/02/2019 SUBJECTIVE: Patient reports feeling fine. Denies any fever or chills. OBJECTIVE: Vital Signs: Temperature 99.5 degrees, heart rate 105, respiratory rate 20, blood pressure 134/75, O2 saturation 96% on room air. General Examination: This is a 33-year-old, male, lying in bed, in no acute distress. Cardiovascular Examination: S1 and S2 heard. No murmurs, gallops, or rubs. Regular rate and rhythm. Respiratory Examination: Clear bilaterally to auscultation. No work of breathing or using accessory muscles. Abdomen: Soft, nontender to palpation. Bowel sounds present. No organomegaly. Extremities: No clubbing, cyanosis, or edema. Peripheral pulses present in both legs. Neurological Examination: The patient is alert and oriented x3. Moves 4 extremities. Laboratory Data: White cell count 4.05, hemoglobin 12.3, hematocrit 36.5, platelets 239,000 with differentials that are still pending. BMP reveals sodium 133 with potassium 4.1 and creatinine 1.1. ASSESSMENT AND PLAN: 1. Pancytopenia. Yesterday, the CBC that we checked on this patient showed pancytopenia. He was sent to the emergency department for home health because of abnormal lab values. We have repeated the CBC but without differentials, unfortunately. This morning, we are going to repeat a CBC with. The platelet count is completely normal. The hemoglobin has increased from 8 to 12.3 without any transfusion and white cell count is 4.05 from 2.79 yesterday. I do not know if this has been a laboratory error or not. In any case, we will see what the CBC looks today and tomorrow but I do not think we are going to try to transfer this patient to [facility]. 2. Acute kidney injury. That is completely resolved. I do not know if that has been related to the vancomycin use in this patient but just in case, we have changed medications to daptomycin. Dr. Perez from infectious disease has been consulted. We will follow recommendations. 3. History of intravenous drug abuse. Aware. We will continue with Suboxone. 4. Asthma. We will provide DuoNeb as needed. 5. Disposition. We will keep this patient until tomorrow. If his labs are okay, we will discharge this patient. cc: Sonny Bolton MD
[2019-06-02 11:15] LABS: SEGS 8 % (42-75)
--- NOTE | 2019-06-02 12:27 | HEMO/ONC CONSULTATION ---
DATE: 06/02/2019 REASON FOR CONSULTATION: Pancytopenia. HISTORY OF PRESENT ILLNESS: Mr. Griffin is a 33-year-old male who is a patient of Dr. Balaji Perez. The patient has a long history of IV drug use, and most recently had cellulitis of his hand. He obtained a PICC line, and began vancomycin on 05/14/2019. The patient has been obtaining IV vancomycin at home per a home health company. The patient came in to the ER last evening because his home health nurse told him that he had abnormal lab values. We were called last night for severe pancytopenia after the patient was evaluated in the ER. The patient was admitted overnight, and labs were redrawn this morning. It turns out that last night's laboratory specimens were clotted and the results were incorrect, and this morning's labs are mostly normal. The patient's platelet count is normal. However, the patient's absolute neutrophil count remains significantly low. The patient states he does not feel very well due to his infection, but he has no other complaints. He is not bleeding, and has run a low-grade fever with a T-max over the last 24 hours of 99.5. 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 SOCIAL HISTORY: He has not used IV drugs in approximately 3 weeks. He denies alcohol. ALLERGIES: Shellfish derived. HOME MEDICATIONS: IV vancomycin and Suboxone and albuterol inhaler. REVIEW OF SYSTEMS: Pertinent positives were listed in the HPI. All others found to be negative. PHYSICAL EXAMINATION: Vital Signs: Temperature 99.5 degrees, pulse rate 105, respiratory rate 20, blood pressure 134/75, O2 saturation 96% on room air. He is in 0/10 pain. General: The patient is in no acute distress. He is resting comfortably in his bed with his parents at bedside. Cardiovascular: Normal S1, S2. No murmur noted. Regular heart rate and rhythm. Slightly elevated. Respiratory: Lung sounds are clear to auscultation. Normal respiratory effort. Abdomen: Soft, nontender to palpation. Extremities: No lower extremity edema noted. Neurological: Alert and oriented x3. Moves all 4 extremities at will. Skin: Multiple areas of healing scab wounds. HEENT: Sclerae is anicteric. PERRLA. Oral mucosa is slightly dry. LABORATORY DATA: WBCs 4.05, hemoglobin 12.3, hematocrit 36.5, platelet count 239,000. ANC 0.41. Sodium 133, creatinine 1.1. PTT 13.7, INR 1.04, PTT 28.6. B12 of 335, folic acid 11.7. ASSESSMENT AND PLAN: 1. Anemia. The patient's hemoglobin and hematocrit are slightly low. We will continue to monitor. We will follow up with him as an outpatient to continue to watch. 2. Neutropenia. The etiology is unclear at this time. It could be related to vancomycin. We have asked the lab to redraw a CBC with differential and manual count. If his ANC is truly low, we will give him a dose of Neupogen. 3. B12 deficiency. The patient's B12 is slightly low. We will start him on a B12 supplement while he is in the hospital. I have discussed with him, obtaining chewable B12 upon discharge. Dictated by MARIFER Aguirre for Robert Stanford MD Patient seen and examined. As above. patient admitted to the ER with severe pancytopenia. In early April he was in the hospital and treated with vancomycin for cellulitis and was discharged home with a PICC line. Though upon visit to the ER this time, he was noted to be pancytopenic, repeat labs this morning revealed that his total white count, hemoglobin and platelets are much better suggesting a lab error. Of note, he is neutropenic. Etiology is unclear however his antibiotic is suspect. Check 12 and folate levels. Proceed with Neupogen today. Continue to monitor. Robert Stanford M.D. cc: Robert Stanford MD [facility] HOSPITALRonald
[2019-06-02 12:42] LABS: BASO# 0.05 X1000 (0.0-0.2); BASO% 1.4 % (0.0-0.8); EOS# 0.22 X1000 (0.0-0.7); EOS% 6.4 % (0.0-10.0); HEMATOCRIT 35.1 % (42.0-52.0); HEMOGLOBIN 11.7 g/dL (14.0-18.0); LYMPH# 1.61 X1000 (1.2-3.4); LYMPH% 46.5 % (20.5-51.1); MCH 29.5 PG (27-31); MCHC 33.3 g/dL (33-37); MCV 88.4 FL (81-99); MONO# 0.76 X1000 (0.11-0.59); MPV 9.3 FL (7.4-10.4); NEUT# 0.82 X1000 (1.4-6.5); NEUT% 23.7 % (42.2-75.2); PLT 226 X1000 (130-400); RBC 3.97 XMIL (4.7-6.1); RDW 12.4 % (11.5-14.5); WBC 3.46 X1000 (4.8-10.8)
[2019-06-02 12:53] LABS: BANDS 2 % (0-1); BASO 1 % (0-1); EOS 5 % (1-10); LYMPHS 63 % (21-51); MONO 9 % (1-9); SEGS 16 % (42-75)
[2019-06-02] MEDS ORDERED: GRANIX SUBQ ONE (12:57)
--- NOTE | 2019-06-02 13:07 | INFECTIOUS DISEASE PROGRESS NO ---
DATE: 06/02/2019 PRESENT ILLNESS: The patient was receiving IV vancomycin because of methicillin-resistant Staphylococcus aureus infections on his arms. He came to the hospital and it turned out that he had a very abnormal CBC. Also, there has been some swelling in the left arm which has a PICC in it. MEDICATIONS: The patient was receiving vancomycin at home, but now has been switched to daptomycin. A side effect of the medication, namely daptomycin, is muscle toxicity and I explained this to the patient and he is agreeable to continue the antibiotic. I told him to notify me if his muscles become painful. PHYSICAL EXAMINATION: Vital Signs: Temperature is 99.5 degrees, pulse 105, respirations 20, blood pressure 134/75. General: This is an obese young male. He is in no acute distress. Head/eyes/ears/nose/throat: He can hear my spoken words and see near objects. He does not have any white coating on his tongue. Neck: No pain with movement. Lungs: Clear to auscultation. Cardiovascular: Regular heart rate. Abdomen: Soft and nontender. Integument: The lesions on the patient's arm where he had the methicillin-resistant Staph aureus infections have all formed eschars, and there is no surrounding erythema and there is no drainage coming from the lesions either. There is no surrounding erythema to the lesions. Neurologic: The patient is alert. He can move his extremities. There is no tremor. Extremities: The patient has a PICC in the left arm. The site is not erythematous or purulent. The left arm, though, is more swollen than the right arm. LAB AND X-RAY: Chest x-ray shows no acute disease. The patient's CBC when he came in was very abnormal. The white count was 2790, today it is 4050. The hemoglobin was 8 yesterday and today it is 12.3, and the platelets yesterday were 26,000 and today they are 239,000. On yesterday's differential of the white blood cell count, it was 73.8% lymphocytes. The differential on today's white blood cell count is not yet back. The creatinine is 1.1. GFR is greater than 60. Liver function studies are normal. CK is 65. Urinalysis is negative for white blood cells or bacteria. Drug screen was positive for opiates and benzodiazepines. Chest x-ray shows no acute disease. ASSESSMENT AND PLAN: The patient is being treated for infections on his arms and they are healing well. I did tell him about his drug screen and he told me that he was not using any drugs. As regarding the abnormal CBC, it has it has become almost completely normalized in a matter of one day, so I think that possibly there could have been some malfunction in the machine that did the CBC. I would think it would be very difficult for all the abnormalities to clear so quickly. The only thing we do not have back yet is the differential of the white blood cell. For now, I am going to continue with daptomycin. I am pretty sure we will be able to stop that very soon. Side effects of the daptomycin, namely muscle toxicity, has been explained to the patient. He agrees with treatment. COMORBIDITIES: The patient is an IV drug abuser. He also has chronic anxiety/depression, pancreatitis which is thought to be secondary to drug use, and the patient also has asthma. cc: Balaji Perez MD
[2019-06-02] MEDS: VITAMIN B-12 SL SCH (13:38)
[2019-06-02] MEDS: SUBOXONE 8 MG/2 MG SL SCH ×2 (13:38→20:08)
[2019-06-02] MEDS: TYLENOL PO PRN ×2 (13:38→18:15)
[2019-06-02 16:38] LABS: PLT 26 X1000 (130-400)
[2019-06-02] MEDS: SUBOXONE 8 MG/2 MG FILM SL SCH (18:18)
[2019-06-02 20:23] LABS: HIV ANTIBODY SCREEN SEE COMMENTS
[2019-06-02] MEDS ORDERED: SUBOXONE 8 MG/2 MG SL SCH (21:00)
[2019-06-03] MEDS: CUBICIN 600 MG in NS 100 ML IV SCH (00:03)
--- NOTE | 2019-06-03 04:20 | INFECTIOUS DISEASE PROGRESS NO ---
DATE: 06/02/2019 ADDENDUM I forgot to mention earlier that the patient had a severe reaction to vancomycin. It was an allergic reaction manifested by anaphylaxis. Because of that reaction, the patient has been switched from vancomycin to daptomycin. cc: Balaji Perez MD
[2019-06-03] MEDS: NS 1,000 ML IV SCH (04:21)
[2019-06-03 04:28] VITALS: BP 125/66
[2019-06-03 08:08] LABS: RETIC% 1.21 % (0.8-2.1); RETIC-HE 32.4 PG (28.2-36.6)
[2019-06-03 08:31] LABS: BASO# 0.04 X1000 (0.0-0.2); BASO% 0.3 % (0.0-0.8); EOS# 0.33 X1000 (0.0-0.7); EOS% 2.8 % (0.0-10.0); HEMOGLOBIN 12.5 g/dL (14.0-18.0); LYMPH# 2.78 X1000 (1.2-3.4); LYMPH% 23.6 % (20.5-51.1); MCH 30.2 PG (27-31); MCHC 33.8 g/dL (33-37); MCV 89.4 FL (81-99); MONO% 10.2 % (1.7-9.3); MPV 9.2 FL (7.4-10.4); NEUT# 7.42 X1000 (1.4-6.5); NEUT% 63.1 % (42.2-75.2); PLT 214 X1000 (130-400); RBC 4.14 XMIL (4.7-6.1); RDW 12.6 % (11.5-14.5); WBC 11.77 X1000 (4.8-10.8)
[2019-06-03 09:10] LABS: AGAP 11; ALBUMIN 3.6 g/dL (3.5-5.0); ALKALINE PHOSPHATASE 83 U/L (32-122); BUN 17 mg/dL (8-22); CALCIUM 8.5 mg/dL (8.8-10.2); CHLORIDE 104 mmol/L (98-107); COSMO 279; CREATININE 0.8 mg/dL (0.7-1.2); ESTIMATED GFR > 60; GLUCOSE 103 mg/dL (70-104); GOT 15 U/L (10-34); GPT 10 U/L (10-44); POTASSIUM 4.1 mmol/L (3.5-5.1); SODIUM 139 mmol/L (136-145); TCO2 24 mmol/L (25-35); TOTAL PROTEIN 6.8 g/dL (6.3-8.3)
[2019-06-03 09:11] LABS: ALB/GLOB RATIO 1.1
[2019-06-03 09:33] LABS: TOTAL BILIRUBIN 0.33 mg/dL (0.20-1.00)
[2019-06-03] MEDS: SUBOXONE 8 MG/2 MG SL SCH (09:45)
[2019-06-03] MEDS: VITAMIN B-12 SL SCH (09:46)
[2019-06-03] MEDS ORDERED: SODIUM PHOSPHATE 35 MMOL in NS 250 ML IV ONE (10:02)
[2019-06-03] MEDS ORDERED: LEVAQUIN PO SCH (10:15)
--- NOTE | 2019-06-03 10:53 | INFECTIOUS DISEASE PROGRESS NO ---
DATE: 06/03/2019 PRESENT ILLNESS: Mr. Griffin was admitted with a methicillin-resistant Staphylococcus aureus infection due to shooting up IV drugs to his upper extremities. He also had an initial pancytopenia. He had been treated with IV vancomycin as an outpatient previously. Last week, our office did receive paperwork from a hospital in [place] which showed an Enterobacter bacteremia as well as a positive C. difficile antigen. MEDICATIONS: After having an anaphylactic type reaction to IV vancomycin, he has been receiving daptomycin 600 mg IV daily. PHYSICAL EXAMINATION: Vital Signs: Temperature is 97.9 degrees, pulse rate 93, respiratory rate 14, blood pressure 125/66, O2 saturation is 96% on room air. General: This is a young man who has been abusing drugs for quite some time with multiple areas of injections to his extremities. He has a flat affect and is mostly nonverbal at this time. HEENT: Atraumatic, normocephalic. Oral mucous membranes are pink and moist. Conjunctivae are pink. Neck: Supple. Trachea is midline. Cardiovascular: Heart rate and rhythm are regular. Normal sinus rhythm on the monitor. Respiratory: Lung sounds are clear to auscultation bilaterally. No work of breathing is noted. Abdomen: Soft, round, nontender. Bowel sounds are active. Integumentary: Skin is warm and dry with multiple areas of dry crusting lesions to his upper and lower extremities. Neurologic: He is awake, alert, oriented, and following commands appropriately. LABORATORY AND X-RAY: Today, his white count is 11.77, hemoglobin 12.5, platelet count 214,000. Creatinine is 0.8. Estimated GFR is greater than 60. Total bilirubin is 0.33, AST 15, ALT 10, and alkaline phosphatase 83. Blood cultures show no growth over the last 48 hours. Previous to this, at the end of April, he did have a positive blood culture growing Enterobacter which was rivas-susceptible to most medications listed including Levaquin. No imaging reports today. ASSESSMENT AND PLAN: Mr. Griffin is a drug abuser who has had a methicillin- resistant Staphylococcus aureus infection, to his hands and arms specifically. However, these areas are looking better. He has had a peripherally inserted central catheter line after having gone through [facility] from drug detox. We were hoping that he was staying clean but, unfortunately, I did find drug paraphernalia on him when I was doing his assessment this morning. That has been given to the charge nurse, who has called security. His mom is at bedside, crying. His toxicology report was also positive on admission. The PICC to his upper arm is swollen. A venous ultrasound of that left arm has been ordered. We will go ahead and discontinue the peripherally inserted central catheter line and stop any treatment for the methicillin-resistant Staphylococcus aureus since those areas are looking much better. Because he has had Enterobacter bacteremia that was documented at the [facility], we will go ahead and treat him using oral Levaquin 500 mg by mouth daily. He did have a Clostridium difficile antigen which was positive also, and did complain of some diarrhea at the time the specimen was collected, which was over a week ago. At the current time, there is no diarrhea, and he is complaining of constipation, so we will not worry about any Clostridium difficile treatment at this time. I have talked to him about letting us know if the diarrhea returns and also reporting any possible side effects with the Levaquin which includes rash, mouth pain, sores, seizures, or tendon rupture. He stated understanding and agreed with the plan. These plans have been discussed with and recommended by Dr. Perez. COMORBIDITIES: For Mr. Griffin include anxiety, depression, pancreatitis, asthma, and IV drug abuse. Dictated by MARIFER Lunsford for Balaji Perez MD cc: Balaji Perez MD [facility]
[2019-06-03 11:21] LABS: HEPATITIS PROFILE ACUTE SEE COMMENTS
--- NOTE | 2019-06-03 16:50 | HEMO/ONC PROGRESS NOTE ---
DATE: 06/03/2019 SUBJECTIVE: The patient is lying in bed this morning. He states he is very anxious to go home. His mother states that his back is hurting him from lying in the bed. He was encouraged yesterday and again today to get out of the bed and sit in the chair, that there is no reason he needs to stay in the bed. The patient states that he feels good otherwise. His cellulitis seems to be improving. The patient had no acute events overnight. The patient's neutrophil count recovered. He has had stable vital signs. OBJECTIVE: Vital Signs: Temperature 97.9 degrees, pulse rate 93, respiratory rate 14, blood pressure 125/76, O2 saturation 96% on room air. He is 2/10 pain. PHYSICAL EXAMINATION: General: The patient appears in no acute distress. He does appear to have a flat affect. Cardiovascular: Normal S1, S2. Heart rate and rhythm regular. Respiratory: Lung sounds are clear to auscultation. Normal respiratory effort. Abdomen: Soft, nondistended, nontender. Integumentary: Multiple areas of healing wounds of the upper and lower extremities, mostly multiple areas of injections due to drug abuse. Neurological: Awake, alert, and oriented x3. Follows commands appropriately. LABORATORY: WBC 11.77, hemoglobin 12.5, hematocrit 37, platelet count 214,000, ANC 7.42, reticulocyte count 1.21, creatinine 0.8, calcium 8.5, phosphorus 2.3. Iron profile normal. Bilirubin 0.33. ASSESSMENT AND PLAN: 1. Anemia. The patient's hemoglobin and hematocrit are slightly low. Most likely from his chronic drug abuse. We have offered to follow up if he wishes. 2. Neutropenia. This is most likely related to vancomycin. He had one dose of Neupogen and his neutrophil count recovered nicely. 3. B12 deficiency. The patient's B12 is slightly low. He was started on a B12 supplement while he was in the hospital. I have discussed with him, obtaining chewable B12 upon discharge. 4. Disposition: The patient was found to have drug paraphanelia in his bed this morning. His PICC line was removed. He was discharged home on oral levaquin. Dictated by MARIFER Aguirre for Robert Stanford MD cc: MD JEROME Banks
[2019-06-04 10:33] LABS: HCV BY PCR SEE COMMENTS
--- NOTE | 2019-06-04 10:48 | DISCHARGE SUMMARY ---
ADMISSION DATE: 06/01/2019 DISCHARGE DATE: 06/03/2019 DISCHARGE DIAGNOSES: 1. Pancytopenia, most likely laboratory error, resolved. 2. Active IV drug abuse. 3. Asthma. CONSULTATIONS: 1. Dr. Balaji Perez from Infectious Disease. 2. Dr. Robert Stanford from Hematology/Oncology. HOSPITAL COURSE: his is a patient who came to the emergency department because he was told that he had some abnormal labs. Here, he was found to be pancytopenic. So based on that information, he was tried to be sent to [facility], but there was not a bed available. We repeated the CBC the next day, and it looks like that this patient's abnormal labs are completely resolved with almost normal white cell count, anemia improved 4 points, and also platelets were back to normal. We consulted Infectious Disease to see if the acute kidney injury has resolved, and indeed it has. Also, to see if there is any relation between the vancomycin renal function. They evaluated the patient, and they also unfortunately found some drug paraphernalia with him so security was called. Infectious Disease decided to treat the cellulitis with p.o. Levaquin for 2 weeks. He is going to be seen in 2 weeks in the office. The patient after he was found to be using drugs here in the hospital, he has talked with his family, and he will go to an detox center in [place]. From Hematology standpoint as we mentioned before, I guess it was a laboratory error. He received 1 dose of Neupogen, but the last CBC was completely normal. The renal function has recovered completely as well. DISCHARGE PHYSICAL EXAMINATION: Vitals: Temperature 97.9 degrees, heart rate 92, respiratory rate 14, blood pressure 125/66, and O2 saturation 96% on room air. General: This is a 33-year- old male lying in bed in no acute distress. Cardiovascular: S1, S2 heard. No murmurs, gallops, or rubs. Regular rate and rhythm. Respiratory: Clear bilaterally to auscultation. No work of breathing or using accessory muscles. Abdomen: Soft. Nontender to palpation. Bowel sounds present. No organomegaly. Extremities: No clubbing, cyanosis, or edema. Peripheral pulses present in both legs. Neurological: The patient is alert and oriented x3. Moves all 4 extremities. DISCHARGE DISPOSITION: Home to self-care. MEDICATIONS: List of medications: Levaquin 500 mg p.o. q.24 hours for a couple weeks. FOLLOW UP: Dr. Perez in the office in a couple of weeks. cc: Sonny Bolton MD MTDD
== END 2019-06-03 12:46 | disposition home or self-care (01) ==
LOC: ED 12:13 → INTOOBSV 12:14 → 3N 12:14 → SUATTDRO 12:14
PROVIDERS: ATTEND Internal Medicine